=== PATIENT | female | born 1945 | race Caucasian/White ===

== ENCOUNTER 2019-03-04 12:38 | Emergency (ER) | payer MEDICARE, OTHER ==
--- OUTSIDE RECORDS SUMMARY | 2019-03-04 12:46 | XMS REPORT | Continuity of Care Document ---
:1945 External Reference #:[id number] Author Name Hoa Loo M.D. 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 Onset: region and thigh Social History Type Date Description Comments Sex Unknown Tobacco Use Start: Unknown Never Smoked Cigarettes Smoking Status Reviewed: 02/22/19 Never Smoked Cigarettes ETOH Use Denies alcohol use Tobacco Use Start: Unknown Patient has never smoked Exercise Type/Frequency Does not exercise Allergies, Adverse Reactions, Alerts Active Allergies Reaction Severity Comments Date NKDA 11/25/2015 Shrimp facial swelling 11/25/2015 Medications Active Medications SIG Qnty Indications Ordering Date Provider Cipro take one tab 6tabs Hoa Loo, 02/22/2019 250mg Tablets twice a day for M.D. three days Ibuprofen take 1 tablet 2 60tabs Hakeem Meraz, 12/18/2018 600mg Tablets times a day M.D. with food as needed for pain, avoid with other NSAIDs Plaquenil take 2 by mouth 180tabs Hakeem Meraz, 10/18/2018 200mg Tablets every day M.D. Leflunomide take 1 tablet 90tabs M05.79 Hakeem Meraz, 04/17/2018 20mg Tablets by mouth once M.D. daily Desloratadine 1 by mouth Unknown 5mg Tablets every day Vitamin C 1 by mouth Unknown 500mg Tablets every day Calcium 600 + Minerals 1 by mouth Unknown twice a day [id number] Tablets Magnesium 1 by mouth Unknown 250mg Tablets every day Vitamin B Complex 1 by mouth Unknown Tablets every day Vitamin D3 Super 1 by mouth Unknown Strength every day 2000Unit Tablets Multivitamin Adult 1 by mouth Unknown Tablets every day [place]-3 1 by mouth Unknown 1000mg Capsules twice a day Nitrofurantoin Take 1 Capsule Unknown Monohydrate/Macrocrysta By Mouth Twice ls Daily 100mg Capsules History Medications Plaquenil 1 by mouth every Hakeem Meraz M.D. 10/26/2018 - 200mg Tablets day for 1 week then 10/26/2018 2 by mouth daily ongoing Plaquenil 1 by mouth every Hakeem Meraz M.D. 10/26/2018 - 200mg Tablets day for 1 week then 10/26/2018 2 by mouth daily ongoing Medications Administered in Office Medication SIG Qnty Indications Ordering Provider Date Triamcinolone (Kenalog) Hakeem Meraz M.D. 07/18/2018 Injection Immunizations CPT Code Status Date Vaccine Lot # [id number] Given 12/18/2018 Fluad (65+) or older flu vacc [id number] Given 12/18/2017 Pneumococcal Conjugate Vaccine 13 Valent For [id number] Intramuscular Use 82094 Given Unknown Pneumococcal Conjugate Vaccine 13 Valent For Intramuscular Use Vital Signs Date Vital Result Comment 02/22/2019 8:51am Height 63 inches 5'3" Weight 148.00 lb Heart Rate 84 /min BP Systolic 131 mmHg BP Diastolic 74 mmHg Body Temperature 95.6 F Pain Level 8 BMI (Body Mass Index) 26.2 kg/m2 01/09/2019 10:24am Height 63 inches 5'3" Weight 155.00 lb Heart Rate 77 /min BP Systolic 126 mmHg BP Diastolic 84 mmHg Respiratory Rate 16 /min Body Temperature 98.0 F Pain Level 8 BMI (Body Mass Index) 27.5 kg/m2 Results Test Acquired Date Facility Test Result H/L Range Note CBC Auto 02/22/2019 [facility] White Blood 4.9 10^3/uL Normal 3.5-10.[address] [place] [address] [phone] Red Blood Count 4.56 10^6/uL Normal 3.70-4.87 Hemoglobin 13.3 g/dL Normal 12.0-16.0 Hematocrit 40 % Normal 35-47 Mean Corpuscular Volume 87 fL Normal 80-97 Mean Corpuscular Hemoglobin 29 pg Normal 27-31 Mean Corpuscular HGB Conc 34 g/dL Normal 31-36 Red Cell Distribution Width 14 % Normal 10-15 Platelet Count 276 10^3/uL Normal 150-450 Mean Platelet Volume 7.6 fL Normal 7.4-10.4 Abs Neutrophils 3.1 10^3/uL Normal 1.5-7.7 Abs Lymphocytes 1.1 10^3/uL Normal 1.0-4.8 Abs Monocytes 0.5 10^3/uL Normal 0-0.8 Abs Eosinophils 0.2 10^3/uL Normal 0-0.6 Abs Basophils 0.0 10^3/uL Normal 0-0.2 Abs Nucleated RBC 0.0 10^3/uL Granulocyte % 62.0 % Lymphocyte % 22.7 % Monocyte % 10.8 % Eosinophil % 4.0 % Basophil % 0.5 % Nucleated Red Blood Cells % 0.1 Inr/Protime 02/22/2019 [facility] Inr 1.02 Normal 0.82-1.09 [address] [place] [address] [phone] Laboratory test 02/22/2019 [facility] Partial 40.4 High 26.0- 38.0 finding [address] [facility] [place] [address] Time PTT [phone] Comp Metabolic 02/22/2019 [facility] Sodium 143 mmol/L Normal 135-145 Panel [address] [place] [address] [phone] Potassium 3.7 mmol/L Normal 3.5-5.0 Chloride 106 mmol/L Normal 101-111 Co2 Carbon Dioxide 30 mmol/L Normal 22-32 Anion Gap 7 mmol/L Normal 2-11 Glucose 79 mg/dL Normal 70-100 Blood Urea Nitrogen 16 mg/dL Normal 6-24 Creatinine 0.58 mg/dL Normal 0.51-0.95 BUN/Creatinine Ratio 27.6 High 8-20 Calcium 10.0 mg/dL Normal 8.6-10.3 Total Protein 6.8 g/dL Normal 6.4-8.9 Albumin 4.2 g/dL Normal 3.2-5.2 Globulin 2.6 g/dL Normal 2-4 Albumin/Globulin Ratio 1.6 Normal 1-3 Total Bilirubin 0.50 mg/dL Normal 0.2-1.0 Alkaline Phosphatase 80 U/L Normal 34-104 Alt 20 U/L Normal 7-52 Ast 22 U/L Normal 13-39 Egfr Non- 102.2 >60 Egfr 123.6 >60 2 Type & Screen 02/22/2019 [facility] Patient Blood Type O Positive [address] [place] [address] [phone] Antibody Screen NEGATIVE Comp Metabolic 12/14/2018 [facility] Sodium 143 mmol/L Normal 135-[address] [place] [address] [phone] Potassium 3.9 mmol/L Normal 3.5-5.0 Chloride 106 mmol/L Normal 101-111 Co2 Carbon Dioxide 29 mmol/L Normal 22-32 Anion Gap 8 mmol/L Normal 2-11 Glucose 84 mg/dL Normal 70-100 Blood Urea Nitrogen 14 mg/dL Normal 6-24 Creatinine 0.62 mg/dL Normal 0.51-0.95 BUN/Creatinine Ratio 22.6 High 8-20 Calcium 9.3 mg/dL Normal 8.6-10.3 Total Protein 6.5 g/dL Normal 6.4-8.9 Albumin 3.8 g/dL Normal 3.2-5.2 Globulin 2.7 g/dL Normal 2-4 Albumin/Globulin Ratio 1.4 Normal 1-3 Total Bilirubin 0.50 mg/dL Normal 0.2-1.0 Alkaline Phosphatase 71 U/L Normal 34-104 Alt 26 U/L Normal 7-52 Ast 23 U/L Normal 13-39 Egfr Non- 94.6 >60 Egfr 114.5 >60 3 CBC Auto 12/14/2018 [facility] White Blood 4.5 10^3/uL Normal 3.5-10.[address] [place] [address] [phone] Red Blood Count 4.38 10^6/uL Normal 3.70-4.87 Hemoglobin 13.1 g/dL Normal 12.0-16.0 Hematocrit 39 % Normal 35-47 Mean Corpuscular Volume 88 fL Normal 80-97 Mean Corpuscular Hemoglobin 30 pg Normal 27-31 Mean Corpuscular HGB Conc 34 g/dL Normal 31-36 Red Cell Distribution Width 13 % Normal 10-15 Platelet Count 276 10^3/uL Normal 150-450 Mean Platelet Volume 7.4 fL Normal 7.4-10.4 Abs Neutrophils 2.7 10^3/uL Normal 1.5-7.7 Abs Lymphocytes 0.9 10^3/uL Low 1.0-4.8 Abs Monocytes 0.6 10^3/uL Normal 0-0.8 Abs Eosinophils 0.3 10^3/uL Normal 0-0.6 Abs Basophils 0.0 10^3/uL Normal 0-0.2 Abs Nucleated RBC 0.0 10^3/uL Granulocyte % 60.0 % Lymphocyte % 20.4 % Monocyte % 12.1 % Eosinophil % 7.2 % Basophil % 0.3 % Nucleated Red Blood Cells % 0.1 Laboratory test 12/14/2018 [facility] Erythrocyte Sed 33 mm/Hr High 0-29 [address] [place] [address] [phone] C Reactive Protein 8.53 mg/L High <8.01 5 Laboratory test 12/14/2018 [facility] C Reactive 8.53 mg/L High <8.01 [address] [place] [address] [phone] Comp Metabolic 12/14/2018 [facility] Sodium 143 Normal 135- [address] mmol/[place] [address] [phone] Potassium 3.9 mmol/L Normal 3.5-5.0 Chloride 106 mmol/L Normal 101-111 Co2 Carbon Dioxide 29 mmol/L Normal 22-32 Anion Gap 8 mmol/L Normal 2-11 Glucose 84 mg/dL Normal 70-100 Blood Urea Nitrogen 14 mg/dL Normal 6-24 Creatinine 0.62 mg/dL Normal 0.51-0.95 BUN/Creatinine Ratio 22.6 High 8-20 Calcium 9.3 mg/dL Normal 8.6-10.3 Total Protein 6.5 g/dL Normal 6.4-8.9 Albumin 3.8 g/dL Normal 3.2-5.2 Globulin 2.7 g/dL Normal 2-4 Albumin/Globulin Ratio 1.4 Normal 1-3 Total Bilirubin 0.50 mg/dL Normal 0.2-1.0 Alkaline Phosphatase 71 U/L Normal 34-104 Alt 26 U/L Normal 7-52 Ast 23 U/L Normal 13-39 Egfr Non- 94.6 >60 Egfr 114.5 >60 7 CBC Auto 12/14/2018 [facility] White Blood 4.5 10^3/uL Normal 3.5-10.[address] [place] [address] [phone] Red Blood Count 4.38 10^6/uL Normal 3.70-4.87 Hemoglobin 13.1 g/dL Normal 12.0-16.0 Hematocrit 39 % Normal 35-47 Mean Corpuscular Volume 88 fL Normal 80-97 Mean Corpuscular Hemoglobin 30 pg Normal 27-31 Mean Corpuscular HGB Conc 34 g/dL Normal 31-36 Red Cell Distribution Width 13 % Normal 10-15 Platelet Count 276 10^3/uL Normal 150-450 Mean Platelet Volume 7.4 fL Normal 7.4-10.4 Abs Neutrophils 2.7 10^3/uL Normal 1.5-7.7 Abs Lymphocytes 0.9 10^3/uL Low 1.0-4.8 Abs Monocytes 0.6 10^3/uL Normal 0-0.8 Abs Eosinophils 0.3 10^3/uL Normal 0-0.6 Abs Basophils 0.0 10^3/uL Normal 0-0.2 Abs Nucleated RBC 0.0 10^3/uL Granulocyte % 60.0 % Lymphocyte % 20.4 % Monocyte % 12.1 % Eosinophil % 7.2 % Basophil % 0.3 % Nucleated Red Blood Cells % 0.1 Laboratory test 12/14/2018 [facility] Erythrocyte Sed 33 mm/Hr High 0-29 [address] [place] [address] [phone] Laboratory test 10/16/2018 [facility] Erythrocyte Sed 45 mm/Hr High 0-29 [address] [place] [address] [phone] C Reactive Protein 15.08 mg/L High <8.01 10 CBC Auto 10/16/2018 [facility] White Blood 6.7 10^3/uL Normal 3.5-10.[address] [place] [address] [phone] Red Blood Count 4.34 10^6/uL Normal 3.70-4.87 Hemoglobin 13.0 g/dL Normal 12.0-16.0 Hematocrit 38 % Normal 35-47 Mean Corpuscular Volume 88 fL Normal 80-97 Mean Corpuscular Hemoglobin 30 pg Normal 27-31 Mean Corpuscular HGB Conc 34 g/dL Normal 31-36 Red Cell Distribution Width 14 % Normal 10-15 Platelet Count 335 10^3/uL Normal 150-450 Mean Platelet Volume 7.2 fL Low 7.4-10.4 Abs Neutrophils 4.2 10^3/uL Normal 1.5-7.7 Abs Lymphocytes 1.2 10^3/uL Normal 1.0-4.8 Abs Monocytes 0.7 10^3/uL Normal 0-0.8 Abs Eosinophils 0.6 10^3/uL Normal 0-0.6 Abs Basophils 0.1 10^3/uL Normal 0-0.2 Abs Nucleated RBC 0.0 10^3/uL Granulocyte % 61.9 % Lymphocyte % 18.4 % Monocyte % 10.5 % Eosinophil % 8.4 % Basophil % 0.8 % Nucleated Red Blood Cells % 0.0 Comp Metabolic 10/16/2018 [facility] Sodium 141 mmol/L Normal 135-[address] [place] [address] [phone] Potassium 3.6 mmol/L Normal 3.5-5.0 Chloride 106 mmol/L Normal 101-111 Co2 Carbon Dioxide 32 mmol/L Normal 22-32 Anion Gap 3 mmol/L Normal 2-11 Glucose 87 mg/dL Normal 70-100 Blood Urea Nitrogen 11 mg/dL Normal 6-24 Creatinine 0.55 mg/dL Normal 0.51-0.95 BUN/Creatinine Ratio 20.0 Normal 8-20 Calcium 9.2 mg/dL Normal 8.6-10.3 Total Protein 6.7 g/dL Normal 6.4-8.9 Albumin 4.0 g/dL Normal 3.2-5.2 Globulin 2.7 g/dL Normal 2-4 Albumin/Globulin Ratio 1.5 Normal 1-3 Total Bilirubin 0.50 mg/dL Normal 0.2-1.0 Alkaline Phosphatase 87 U/L Normal 34-104 Alt 17 U/L Normal 7-52 Ast 18 U/L Normal 13-39 Egfr Non- 109.0 >60 Egfr 131.8 >60 11 1 Standard intensity warfarin therapeutic range: 2.0-3.0 High intensity warfarin therapeutic range: 2.5-3.5 2 Because ethnic data is not always readily available, this report includes an eGFR for both -Americans and non- Americans. The National Kidney Disease Education Program (NKDEP) does not endorse the use of the MDRD equation for patients that are not between the ages of 18 and 70, are , have extremes of body size, muscle mass, or nutritional status, or are non- or non-. According to the National Kidney Foundation, irrespective of diagnosis, the stage of the disease is based on the level of kidney function: Stage Description GFR(mL/min/1.73 m(2)) 1 Kidney damage with normal or decreased GFR 90 2 Kidney damage with mild decrease in GFR 60-89 3 Moderate decrease in GFR 30-59 4 Severe decrease in GFR 15-29 5 Kidney failure <15 (or dialysis) 3 Because ethnic data is not always readily available, this report includes an eGFR for both -Americans and non- Americans. The National Kidney Disease Education Program (NKDEP) does not endorse the use of the MDRD equation for patients that are not between the ages of 18 and 70, are , have extremes of body size, muscle mass, or nutritional status, or are non- or non-. According to the National Kidney Foundation, irrespective of diagnosis, the stage of the disease is based on the level of kidney function: Stage Description GFR(mL/min/1.73 m(2)) 1 Kidney damage with normal or decreased GFR 90 2 Kidney damage with mild decrease in GFR 60-89 3 Moderate decrease in GFR 30-59 4 Severe decrease in GFR 15-29 5 Kidney failure <15 (or dialysis) 4 Please check labs 2 days before follow up 5 Please check labs 2 days before follow up 6 Please check labs 2 days before follow up 7 Because ethnic data is not always readily available, this report includes an eGFR for both -Americans and non- Americans. The National Kidney Disease Education Program (NKDEP) does not endorse the use of the MDRD equation for patients that are not between the ages of 18 and 70, are , have extremes of body size, muscle mass, or nutritional status, or are non- or non-. According to the National Kidney Foundation, irrespective of diagnosis, the stage of the disease is based on the level of kidney function: Stage Description GFR(mL/min/1.73 m(2)) 1 Kidney damage with normal or decreased GFR 90 2 Kidney damage with mild decrease in GFR 60-89 3 Moderate decrease in GFR 30-59 4 Severe decrease in GFR 15-29 5 Kidney failure <15 (or dialysis) 8 Please check labs 2 days before follow up 9 Please check labs 2 days before follow up and xrays today 10 Please check labs 2 days before follow up and xrays today 11 Because ethnic data is not always readily available, this report includes an eGFR for both -Americans and non- Americans. The National Kidney Disease Education Program (NKDEP) does not endorse the use of the MDRD equation for patients that are not between the ages of 18 and 70, are , have extremes of body size, muscle mass, or nutritional status, or are non- or non-. According to the National Kidney Foundation, irrespective of diagnosis, the stage of the disease is based on the level of kidney function: Stage Description GFR(mL/min/1.73 m(2)) 1 Kidney damage with normal or decreased GFR 90 2 Kidney damage with mild decrease in GFR 60-89 3 Moderate decrease in GFR 30-59 4 Severe decrease in GFR 15-29 5 Kidney failure <15 (or dialysis) Procedures Date Code Description Status 11/07/2018 [id number] Bone Mineral Density Test Completed Medical Devices Description No Information Available Encounters Type Date Location Provider Dx Diagnosis Office Visit 01/09/2019 [facility] Hoa Loo, M06.09 Rheumatoid 10:00a at [facility] arthritis w/o rheumatoid factor, multiple sites M25.552 Pain in left hip M16.12 Unilateral primary osteoarthritis, left hip Office Visit 12/18/2018 8:20a [facility]umat[facility] Hakeem M06.09 [facility] M.D. arthritis w/o rheumatoid factor, multiple sites Z79.899 Other snf (current) drug therapy M25.552 Pain in left hip R79.82 Elevated C-reactive protein (CRP) Z23 Encounter for immunization Office Visit 10/18/2018 8:00a Rheumatology Hakeem Meraz, M05.79 [facility] w [facility] site w/o org/sys involv Z79.899 Other snf (current) drug therapy M25.562 Pain in left knee M25.511 Pain in right shoulder M25.552 Pain in left hip Assessments Date Code Description Provider 02/22/2019 M25.552 Pain in left hip Hoa Loo M.D. 02/22/2019 M16.12 Unilateral primary osteoarthritis, left hip Hoa Loo M.D. 01/09/2019 M06.09 Rheumatoid arthritis without rheumatoid Rahul Fleming, multiple sites 01/09/2019 M25.552 Pain in left hip Hoa Loo M.D. 01/09/2019 M16.12 Unilateral primary osteoarthritis, left hip Hao Loo M.D. 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 12/18/2018 M25.552 Pain in left hip Hakeem Meraz M.D. 12/18/2018 R79.82 Elevated C-reactive protein (CRP) Hakeem Meraz M.D. 12/18/2018 Z23 Encounter for immunization Hakeem Meraz M.D. 10/18/2018 M05.79 Rheumatoid arthritis with rheumatoid factor of Hakeem Meraz M.D. 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 10/18/2018 M25.562 Pain in left knee Hakeem Meraz M.D. 10/18/2018 M25.511 Pain in right shoulder Hakeem Meraz M.D. 10/18/2018 M25.552 Pain in left hip Hakeem Meraz M.D. Plan of Treatment Future Appointment(s):03/20/2019 9:45 am - Hoa Loo M.D. at [facility] at Pufxpj1203/05/2019 12:30 pm - Horacio Corbett PA-C at [facility] at Fmhcat2003/05/2019 12:30 pm - ATIYA Escobar at [facility] at Dqyoky7803/05/2019 12:30 pm - Hoa Loo M.D. at [facility] at Crhoeq7603/20/2019 8:00 am - Hakeem Meraz M.D. at [facility]02/22/2019 - Hoa Loo M.D.M25.552 Pain in left hipFollow up: Follow up: 2 weeks after hrhzbjvX80.12 Unilateral primary osteoarthritis, left hip Functional Status Description No Information Available Mental Status Description No Information Available Referrals Refer to Reason for Referral Status Appt Date Mitchell Peña MD Please monitor for Plaquenil toxicity Sent [address] [place] [address] [phone] Hoa Loo M.D. Please evaluate and treat patient with severe Sent advanced left hip osteoarthritis [address] [place] [address] [phone]
--- OUTSIDE RECORDS SUMMARY | 2019-03-04 12:47 | XMS REPORT | Continuity of Care Document ---
:1945 External Reference #:[id number] Author Name Hoa Loo M.D. (transmitted by agent of provider Kimberly Scott) Address [address] [place] [address] Problems Active Problems Provider Date Localized, primary osteoarthritis of the pelvic Hoa Loo M.D. Onset: region and thigh Social History Type Date Description Comments Sex Unknown Tobacco Use Start: Unknown Never Smoked Cigarettes Smoking Status Reviewed: 01/09/19 Never Smoked Cigarettes ETOH Use Denies alcohol use Tobacco Use Start: Unknown Patient has never smoked Exercise Type/Frequency Does not exercise Allergies, Adverse Reactions, Alerts Active Allergies Reaction Severity Comments Date NKDA 11/25/2015 Shrimp facial swelling 11/25/2015 Medications Active Medications SIG Qnty Indications Ordering Provider Date Ibuprofen take 1 tablet 2 60tabs Hakeem [...] 1 by mouth Unknown twice a day [id number] Tablets Magnesium 1 by mouth Unknown 250mg Tablets every day Vitamin B Complex 1 by mouth Unknown every day Tablets Vitamin D3 Super 1 by mouth Unknown Strength every day 2000Unit Tablets Multivitamin Adult 1 by mouth Unknown every day Tablets [place]-3 1 by mouth Unknown 1000mg Capsules twice a day History Medications Plaquenil 1 by mouth every [...] CPT Code Status Date Vaccine Lot # [id number] Given 12/18/2018 Fluzone High Dose [id number] 93611 Given 12/18/2017 Pneumococcal Conjugate Vaccine 13 Valent For [id number] Intramuscular Use 24771 Given Unknown Pneumococcal Conjugate Vaccine 13 Valent For Intramuscular Use Vital Signs Date Vital Result Comment 01/09/2019 10:24am Height 63 inches 5'3" Weight 155.00 lb Heart Rate 77 /min BP Systolic 126 mmHg BP Diastolic 84 mmHg Respiratory Rate 16 /min Body Temperature 98.0 F Pain Level 8 BMI (Body Mass Index) 27.5 kg/m2 12/18/2018 8:17am Height 63 inches 5'3" Weight 151.00 lb Heart Rate 83 /min BP Systolic Sitting 122 mmHg BP Diastolic Sitting 72 mmHg Pain Level 2 O2 % BldC Oximetry 97 % BMI (Body Mass Index) 26.7 kg/m2 Results Test Acquired Facility Test Result H/L Range Note Date Laboratory test 12/14/2018 [facility] Erythrocyte Sed 33 mm/Hr High 0-29 [address] [place] [address] [phone] CBC Auto Diff 12/14/2018 [facility] White Blood 4.5 Normal 3.5 -10.[address] Count 10^3/uL [place], [place] [id number] [phone] Red Blood Count 4.38 10^6/uL Normal 3.70-4.87 [...] % Nucleated Red Blood Cells % 0.1 Comp Metabolic 12/14/2018 [facility] Sodium 143 mmol/L Normal 135-[address] [place] [address] [phone] Potassium 3.9 mmol/L Normal 3.5-5.0 Chloride 106 [...] Egfr Non- 94.6 >60 Egfr 114.5 >60 2 Laboratory test 12/14/2018 [facility] C Reactive 8.53 mg/L High <8.01 [address] [place] [address] [phone] Laboratory test 12/14/2018 [facility] Erythrocyte Sed 33 mm/Hr High 0-[address] [place] [address] [phone] C Reactive Protein 8.53 mg/L High <8.01 5 CBC Auto 12/14/2018 [facility] White Blood 4.5 10^3/uL Normal 3.5-10.[address] [place] [address] [phone] Red Blood Count 4.38 10^6/uL Normal 3.70-4.87 [...] % Nucleated Red Blood Cells % 0.1 Comp Metabolic 12/14/2018 [facility] Sodium 143 mmol/L Normal 135-[address] [place] [address] [phone] Potassium 3.9 mmol/L Normal 3.5-5.0 Chloride 106 [...] Egfr Non- 94.6 >60 Egfr 114.5 >60 6 Laboratory test 10/16/2018 [facility] Erythrocyte Sed 45 mm/Hr High 0-29 [address] [place] [place] [address] [phone] C Reactive Protein 15.08 mg/L High <8.01 8 CBC Auto 10/16/2018 [facility] White Blood 6.7 10^3/uL Normal 3.5-10.[address] [place] [address] [phone] Red Blood Count 4.34 10^6/uL Normal 3.70-4.87 [...] Blood Cells % 0.0 Comp Metabolic 10/16/2018 [facility] Sodium 141 mmol/L Normal 135-[address] [place] [address] [phone] Potassium 3.6 mmol/L Normal 3.5-5.0 Chloride 106 [...] Egfr Non- 109.0 >60 Egfr 131.8 >60 9 Laboratory test 07/12/2018 [facility] Erythrocyte Sed 45 mm/Hr High 0-29 [address] [place] [address] [phone] C Reactive Protein 15.23 mg/L High <8.01 11 CBC Auto 07/12/2018 [facility] White Blood 6.8 10^3/uL Normal 3.5-10.[address] [place] [address] [phone] Red Blood Count 4.39 10^6/uL Normal 3.70-4.87 Hemoglobin 12.8 g/dL Normal 12.0-16.0 Hematocrit 39 % Normal 35-47 Mean Corpuscular Volume 88 fL Normal 80-97 Mean Corpuscular Hemoglobin 29 pg Normal 27-31 Mean Corpuscular HGB Conc 33 g/dL Normal 31-36 Red Cell Distribution Width 13 % Normal 10.5-15 Platelet Count 312 10^3/uL Normal 150-450 Mean Platelet Volume 7.6 fL Normal 7.4-10.4 Abs Neutrophils 3.9 10^3/uL Normal 1.5-7.7 Abs Lymphocytes 1.3 10^3/uL Normal 1.0-4.8 Abs Monocytes 0.7 10^3/uL Normal 0-0.8 Abs Eosinophils 0.9 10^3/uL High 0-0.6 Abs Basophils 0.0 10^3/uL Normal 0-0.2 Abs Nucleated RBC 0.0 10^3/uL Granulocyte % 57.1 % Lymphocyte % 19.6 % Monocyte % 10.0 % Eosinophil % 12.6 % Basophil % 0.7 % Nucleated Red Blood Cells % 0.0 Comp Metabolic 07/12/2018 [facility] Sodium 142 mmol/L Normal 135-[address] [place] [address] [phone] Potassium 4.0 mmol/L Normal 3.5-5.0 Chloride 105 mmol/L Normal 101-111 Co2 Carbon Dioxide 32 mmol/L Normal 22-32 Anion Gap 5 mmol/L Normal 2-11 Glucose 91 mg/dL Normal 70-100 Blood Urea Nitrogen 13 mg/dL Normal 6-24 Creatinine 0.59 mg/dL Normal 0.51-0.95 BUN/Creatinine Ratio 22.0 High 8-20 Calcium 9.6 mg/dL Normal 8.6-10.3 Total Protein 6.9 g/dL Normal 6.4-8.9 Albumin 3.9 g/dL Normal 3.2-5.2 Globulin 3.0 g/dL Normal 2-4 Albumin/Globulin Ratio 1.3 Normal 1-3 Total Bilirubin 0.50 mg/dL Normal 0.2-1.0 Alkaline Phosphatase 70 U/L Normal 34-104 Alt 19 U/L Normal 7-52 Ast 20 U/L Normal 13-39 Egfr Non- 100.5 >60 Egfr 121.6 >60 12 1 Please check labs 2 days before follow up 2 Because ethnic data is not always [...] 5 Kidney failure <15 (or dialysis) 3 Please check labs 2 days before follow up 4 Please check labs 2 days before follow up 5 Please check labs 2 days before follow up 6 Because ethnic data is not always readily [...] 15-29 5 Kidney failure <15 (or dialysis) 7 Please check labs 2 days before follow up and xrays today 8 Please check labs 2 days before follow up and xrays today 9 Because ethnic data is not always readily [...] 15-29 5 Kidney failure <15 (or dialysis) 10 Please check labs 2 days before follow up 11 Please check labs 2 days before follow up 12 Because ethnic data is not always readily [...] dialysis) Procedures Date Code Description Status 11/07/2018 074576871 Bone Mineral Density Test Completed 07/18/2018 89161 Inject/Drain Joint/Bursa Major W/O US Completed Medical Devices Description No Information Available Encounters Type Date Location Provider Dx Diagnosis Office Visit 12/18/2018 Rheumatology Jamison Cooney6.09 Rheumatoid 8:20a [facility] Rahul arthritis w/o rheumatoid factor, multiple sites Z79.899 Other assisted (current) drug therapy M25.552 Pain in left hip R79.82 Elevated C-reactive protein (CRP) Z23 Encounter for immunization Office Visit 10/18/2018 8:00a Rheumatology Jamison Cooney5.79 Rheu arthritis [facility] Rahul w rheu factor [facility] [place] w/o org/sys involv Z79.899 Other machine long goods helper (current) drug therapy M25.562 Pain in left knee M25.511 Pain in right shoulder M25.552 Pain in left hip Office Visit 07/18/2018 8:40a Rheumatology Jamison Cooney5.79 Rheu arthritis [facility] Rahul w rheu factor mult site w/o org/sys involv Z79.899 Other assisted (current) drug therapy M70.62 Trochanteric bursitis, left hip M25.562 Pain in left knee M25.552 Pain in left hip Assessments Date Code Description Provider 01/09/2019 M06.09 Rheumatoid arthritis without rheumatoid Hoa Loo M.D. factor, multiple sites 01/09/2019 M25.552 Pain in left hip Hoa Loo M.D. 01/09/2019 M16.12 Unilateral primary osteoarthritis, left hip Hoa Loo M.D. 12/18/2018 M06.09 Rheumatoid arthritis without rheumatoid Hakeem Meraz M.D. factor, multiple sites 12/18/2018 Z79.899 Other assisted (current) drug therapy Hakeem Meraz M.D. 12/18/2018 M25.552 Pain in left hip Hakeem Meraz M.D. 12/18/2018 R79.82 Elevated C-reactive protein (CRP) Hakeem Meraz M.D. 12/18/2018 Z23 Encounter for immunization Hakeem Meraz M.D. 10/18/2018 M05.79 Rheumatoid arthritis with rheumatoid factor of Hakeem Meraz M.D. multiple site 10/18/2018 Z79.899 Other machine long goods helper (current) drug therapy Hakeem Meraz M.D. 10/18/2018 M25.562 Pain in left knee Hakeem Meraz M.D. 10/18/2018 M25.511 Pain in right shoulder Hakeem Meraz M.D. 10/18/2018 M25.552 Pain in left hip Hakeem Meraz M.D. 07/18/2018 M05.79 Rheumatoid arthritis with rheumatoid factor of Hakeem Meraz M.D. multiple site 07/18/2018 Z79.899 Other machine long goods helper (current) drug therapy Hakeem Meraz M.D. 07/18/2018 M70.62 Trochanteric bursitis, left hip Hakeem Meraz M.D. 07/18/2018 M25.562 Pain in left knee Hakeem Meraz M.D. 07/18/2018 M25.552 Pain in left hip Hakeem Meraz M.D. Plan of Treatment Future Appointment(s):03/20/2019 8:00 am - Hakeem Meraz M.D. at [facility]01/09/2019 - Hoa Loo M.D.M06.09 Rheumatoid arthritis without rheumatoid factor, multiple sitesFollow up:Follow up: 7-10 days before lmrzcjwA63.552 Pain in left hipM16.12 Unilateral primary osteoarthritis, left hip Functional Status Description No Information Available Mental Status Description No Information Available Referrals Refer to Dr Reason for Referral Status Appt Date Mitchell Peña MD Please monitor for Plaquenil toxicity Sent [address] [place] [address] [phone] Hoa Loo M.D. Please evaluate and treat patient with severe Sent advanced left hip osteoarthritis [address] [place] [address] [phone]
--- OUTSIDE RECORDS SUMMARY | 2019-03-04 12:47 | XMS REPORT | Continuity of Care Document ---
:1945 External Reference #:[id number] Author Name Hoa Loo M.D. (transmitted by agent of provider Priti Post) Address [address] [place] [address] Care Team Providers Name Role Phone Albert Dos Santos MD - Family Care Team Information [facility] [phone] Medicine Problems Active Problems Provider Date Localized, [...] 1 by mouth Unknown twice a day [id number] Tablets Magnesium 1 by mouth Unknown 250mg Tablets every day Vitamin B Complex 1 by mouth Unknown Tablets every day Vitamin D3 Super 1 by mouth Unknown Strength every day 2000Unit Tablets Multivitamin Adult 1 by mouth Unknown Tablets every day [place]-3 1 by mouth Unknown 1000mg Capsules twice [...] CPT Code Status Date Vaccine Lot # 55574 Given 12/18/2018 Fluad (65+) or older flu vacc [id number] 15519 Given 12/18/2017 Pneumococcal Conjugate Vaccine 13 Valent For [id number] Intramuscular Use 29646 Given Unknown Pneumococcal Conjugate Vaccine 13 Valent [...] Mass Index) 27.5 kg/m2 Results Test Acquired Facility Test Result H/L Range Note Date Laboratory test 12/14/2018 [facility] Erythrocyte Sed 33 mm/Hr High 0-29 [address] [place] [address] [phone] CBC Auto Diff 12/14/2018 [facility] White Blood 4.5 Normal 3.5 -10.[address] Count 10^3/[place] [address] [phone] Red Blood Count 4.38 10^6/uL Normal 3.70-4.87 [...] Blood Cells % 0.1 Comp Metabolic 12/14/2018 [facility] Sodium 143 mmol/L Normal 135-[address] [place] [address] [phone] Potassium 3.9 mmol/L Normal 3.5-5.0 Chloride 106 [...] Egfr 114.5 >60 2 Laboratory test 12/14/2018 [facility] C Reactive 8.53 mg/L High <8.01 [address] [place] [address] [phone] Laboratory test 12/14/2018 [facility] Erythrocyte Sed 33 mm/Hr High 0-29 [address] [place] [address] [phone] C Reactive Protein 8.53 mg/L High <8.01 5 CBC Auto 12/14/2018 [facility] White Blood 4.5 10^3/uL Normal 3.5-10.[address] [place] [address] [phone] Red Blood Count 4.38 10^6/uL Normal 3.70-4.87 [...] Blood Cells % 0.1 Comp Metabolic 12/14/2018 [facility] Sodium 143 mmol/L Normal 135-[address] [place] [address] [phone] Potassium 3.9 mmol/L Normal 3.5-5.0 Chloride 106 [...] Egfr 114.5 >60 6 Laboratory test 10/16/2018 [facility] Erythrocyte Sed 45 mm/Hr High 0-29 [address] [place] [address] [phone] C Reactive Protein 15.08 mg/L High <8.01 8 CBC Auto 10/16/2018 [facility] White Blood 6.7 10^3/uL Normal 3.5-10.[address] [place] [address] [phone] Red Blood Count 4.34 10^6/uL Normal 3.70-4.87 [...] Blood Cells % 0.0 Comp Metabolic 10/16/2018 [facility] Sodium 141 mmol/L Normal 135-[address] [place] [address] [phone] Potassium 3.6 mmol/L Normal 3.5-5.0 Chloride 106 [...] Non- 109.0 >60 Egfr 131.8 >60 9 1 Please check labs 2 days before [...] dialysis) Procedures Date Code Description Status 11/07/2018 [id number] Bone Mineral Density Test Completed Medical Devices Description No Information Available Encounters Type Date Location Provider Dx Diagnosis Office Visit 01/09/2019 [facility] Hoa Loo, M06.09 Rheumatoid 10:00a at [facility] arthritis w/o rheumatoid factor, multiple sites M25.552 Pain in left hip M16.12 Unilateral primary osteoarthritis, left hip Office Visit 12/18/2018 8:20a Rheumatology Hakeem M06.09 [facility] M.D. arthritis w/o rheumatoid factor, multiple sites Z79.899 Other fci (current) drug therapy M25.552 Pain in left hip R79.82 Elevated C-reactive protein (CRP) Z23 Encounter for immunization Office Visit 10/18/2018 8:00a Rheumatology Jamison Cooney5.79 Rheu arthritis [facility] w rheu factor mult site w/o org/sys involv Z79.899 Other fci (current) drug therapy M25.562 Pain in left [...] Rahul Cooney, multiple sites 12/18/2018 Z79.899 Other fci (current) drug therapy Hakeem Meraz M.D. 12/18/2018 M25.552 Pain in left hip Hakeem Meraz M.D. 12/18/2018 R79.82 Elevated C-reactive protein (CRP) Hakeem Meraz M.D. 12/18/2018 Z23 Encounter for immunization Hakeem Meraz M.D. 10/18/2018 M05.79 Rheumatoid arthritis with rheumatoid factor of Hakeem Meraz M.D. multiple site 10/18/2018 Z79.899 Other fci (current) drug therapy Hakeem Meraz M.D. 10/18/2018 M25.562 Pain in left knee Hakeem Meraz M.D. 10/18/2018 M25.511 Pain in right shoulder Hakeem Meraz M.D. 10/18/2018 M25.552 Pain in left hip Hakeem Meraz M.D. Plan of Treatment Future Appointment(s):03/20/2019 9:45 am - [facility]:30 pm - [facility] 12:30 pm - ATIYA Escobar at [facility]03/05/2019 12:30 pm - Hoa Loo M.D. at [facility] at [facility]/20/2019 8:00 am - Hakeem Meraz M.D. at [facility]02/22/2019 - Hoa Loo M.D.M25.552 Pain in left hipFollow up: Follow up: 2 weeks after heftnewV81.12 Unilateral primary osteoarthritis, left hip Functional Status Description No Information Available Mental Status Description No Information Available Referrals Refer to Dr Reason for Referral Status Appt Date Mitchell Peña MD Please monitor for Plaquenil toxicity Sent [address] [place] [address] [phone] Hoa Loo M.D. Please evaluate and treat patient with severe Sent advanced left hip osteoarthritis [address] [place] [address] [phone]
[2019-03-04 12:57] VITALS: BP 143/85
--- NOTE | 2019-03-04 13:11 | UC ---
Complaint Female HPI - HPI Summary HPI Summary: Ms. Watson has been trying to get hip surgery her urine has tested positive for enterococcus in spite of being treated. Dr. Millan consult to Dr. Antunez who recommended a straight catheter. She comes in today to have a straight catheter urine sent to the lab. She has no complaints. - History Of Current Complaint Chief Complaint: UCGU Stated Complaint: URINARY ISSUE Time Seen by Provider: 03/04/19 12:43 Hx Obtained From: Patient Severity Initially: Mild Severity Currently: None Pain Intensity: 2 Character: Not Applicable Aggravating Factor(s): Nothing Alleviating Factor(s): Nothing Associated Signs And Symptoms: Positive: Negative - Allergies/Home Medications Allergies/Adverse Reactions: Allergies Allergy/AdvReac Type Severity Reaction Status Date / Time SHRIMP Allergy Severe violently Uncoded 03/04/19 12:57 vomiting PMH/Surg Hx/FS Hx/Imm Hx Previously Healthy: Yes - Surgical History Surgical History: Yes Surgery Procedure, Year, and Place: RT lumpectomy, breast. cholecystectomy. appendectomy. tonsillectomy. RT WRIST CARPAL TUNNEL - Social History Alcohol Use: None Substance Use Type: None Smoking Status (MU): Never Smoked Tobacco Review of Systems All Other Systems Reviewed And Are Negative: Yes Physical Exam - Summary Physical Exam Summary: She is nontoxic in appearance with stable vital signs Triage Information Reviewed: Yes Appearance: Well-Appearing Vital Signs: Initial Vital Signs Temp 98.9 F 03/04/19 12:54 Pulse 80 03/04/19 12:54 Resp 18 03/04/19 12:54 BP 143/85 03/04/19 12:54 Pulse Ox 99 03/04/19 12:54 Vital Signs Reviewed: Yes ENT Exam: Normal Respiratory Exam: Normal Cardiovascular Exam: Normal Abdominal Exam: Normal Neurological Exam: Normal Complaint Female Dx - Course Course Of Treatment: Her initial UA is negative here in the urine has been sent to the lab for culture. She underwent straight catheterization by the nursing staff. - Differential Dx/Diagnosis Provider Diagnosis: Urinary catheter insertion/adjustment/removal Discharge ED - Sign-Out/Discharge Documenting (check all that apply): Patient Departure All imaging exams completed and their final reports reviewed: No Studies - Discharge Plan Condition: Stable Disposition: HOME Referrals: Albert Dos Santos MD [Primary Care Provider] - Additional Instructions: Culture results will be available in 2 days - Billing Disposition and Condition Condition: STABLE Disposition: Home
--- NOTE | 2019-03-05 15:25 | UC ---
- Progress Note Progress Note: final urine - no growth, no change bobby Course/Dx - Diagnoses Provider Diagnoses: Urinary catheter insertion/adjustment/removal Discharge ED - Sign-Out/Discharge Documenting (check all that apply): Post-Discharge Follow Up All imaging exams completed and their final reports reviewed: No Studies - Discharge Plan Condition: Stable Disposition: HOME Referrals: Albert Dos Santos MD [Primary Care Provider] - Additional Instructions: Culture results will be available in 2 days - Billing Disposition and Condition Condition: STABLE Disposition: Home
== END 2019-03-04 13:19 | disposition home or self-care (01) ==
LOC: UCEAST 12:38
DX: Z46.6 Encounter for fitting and adjustment of urinary device (principal); R82.71 Bacteriuria; B95.2 Enterococcus as the cause of diseases classified elsewhere; Z91.013 Allergy to seafood
CPT/HCPCS: 81003; 87086; 99211; G0463

== ENCOUNTER 2019-03-19 06:27 | Observation (INO) | payer MEDICARE, OTHER ==
--- NOTE | 2019-02-26 10:01 | HP ---
AMENDED REPORT NOW INCLUDES DESIGNATED COSIGNER HISTORY AND PHYSICAL: DATE OF ADMISSION/SURGERY: 03/05/19 DATE OF OFFICE VISIT: 02/22/19 SURGEON: Hoa Loo MD * (DICTATED BY ATIYA FLOYD) PROCEDURE: Left total hip arthroplasty. CHIEF COMPLAINT: Left hip pain. HISTORY OF PRESENT ILLNESS: Ms. Watson is a 73-year-old female with end-stage osteoarthritis of the left hip. She has failed conservative treatment and elected to proceed with a left total hip arthroplasty. PAST MEDICAL HISTORY: RA and breast cancer. PAST SURGICAL HISTORY: Tonsillectomy, adenoidectomy, tubal ligation, cholecystectomy, appendectomy, lumpectomy, and carpal tunnel release. CURRENT MEDICATIONS: 1. Plaquenil 200 mg 2 daily. 2. Leflunomide 20 mg daily. 3. Desloratadine 5 mg a day. 4. Vitamin C. 5. Calcium. 6. Magnesium. 7. Vitamin B. 8. Vitamin D3. 9. Multivitamin. 10. [place]-3. ALLERGIES: No known drug allergies. FAMILY HISTORY: Coronary artery disease, cancer, and RA. SOCIAL HISTORY: She is a 73-year-old female, lives alone. She does not smoke or use alcohol. REVIEW OF SYSTEMS: A complete 14-point review of systems was reviewed with the patient. It was all negative or noncontributory. PHYSICAL EXAMINATION GENERAL: She is well developed, well nourished, in no acute distress. VITAL SIGNS: She stands 63 inches tall, weighs 155 pounds. Her blood pressure is 126/84, her heart rate is 77. HEENT: Normocephalic, atraumatic. NECK: Supple. No palpable lymph nodes. PULMONARY: The lungs are clear to auscultation bilaterally. CARDIO: Regular rate and rhythm. Strong S1, S2. ABDOMEN: Soft, nontender, nondistended. NEUROLOGICAL: She is alert and oriented x3. MUSCULOSKELETAL: Left lower extremity: The skin is intact. There are no open wounds or abrasions. She has a 100 degrees of hip flexion, 0 degrees of internal rotation, 20 degrees of external rotation, reproducing severe groin pain. She is able to dorsiflex and plantarflex. She has a 2+ dorsalis pedis pulse and intact sensation. ASSESSMENT AND PLAN: Ms. Watson is a 73-year-old female with end-stage osteoarthritis of the left hip. She has failed conservative treatment and elected to proceed with a left total hip arthroplasty. The surgery is scheduled for 03/05/[address] Loo discussed the risks and benefits of the surgery at today's visit and all of her questions were answered. She will follow up with Dr. Loo 2 weeks after the surgery. ATIYA FLOYD [id number]/[facility] #: [id number] MTDDima
[~2019-03-19 06:27] MED LIST: Buffered Lidocaine 1% SYRIN* 1 ML/SYRINGE INTRADERM ONE; Lactated Ringers 1000 ML Bag* 1,000 ML IV SCH; Tranexamic Acid 1,000 MG in NS 0.9% 50 ML IV ONE
[2019-03-19] MEDS ORDERED: ROPIVACAINE 5 MG/ML 30 ML BTL (0.5%) ONE ×2 (07:06→08:31)
[2019-03-19] MEDS ORDERED: Buffered Lidocaine 1% SYRIN* 1 ML/SYRINGE INTRADERM ONE (07:44)
[2019-03-19] MEDS ORDERED: ceFAZolin 2 GM PREMIX in ORs 2 GM/50 ML BAG ONE (07:45)
[2019-03-19] MEDS ORDERED: Propofol* 10 MG/ML 20 ML BTL ONE (08:30)
[2019-03-19] MEDS ORDERED: Lidocaine 2% PF * 5 ML VIAL ONE (08:30)
[2019-03-19] MEDS ORDERED: Midazolam* 1 MG/ML 2 ML VIAL (2 MG) ONE (08:30)
[2019-03-19] MEDS ORDERED: Rocuronium* 10 MG/ML VIAL ONE ×3 (08:30→13:33)
[2019-03-19] MEDS ORDERED: Lidocaine 1% MPF ** 5 ML VIAL ONE (08:39)
[2019-03-19] MEDS ORDERED: fentaNYL* 50 MCG/ML 2 ML VIAL (100 MCG VIAL) ONE (09:06)
[2019-03-19] MEDS ORDERED: Dexamethasone IV* 4 MG/ML 1 ML (4 MG) ONE ×2 (09:24→13:17)
[2019-03-19] MEDS ORDERED: Ketorolac INJ* 30 MG/ML 1 ML VIAL ONE ×2 (09:24→13:17)
[2019-03-19] MEDS ORDERED: Ondansetron INJ* 2 MG/ML VIAL ONE ×2 (09:24→13:17)
[2019-03-19] MEDS ORDERED: Metoclopramide IV* 5 MG/ML 2 ML VIAL ONE ×2 (09:24→13:17)
[2019-03-19] MEDS ORDERED: oxyCODONE TAB* 5 MG TAB PO PRN ×2 (10:31→11:36)
[2019-03-19] MEDS ORDERED: HYDROmorphone INJ1* 1 MG/ML SYRINGE IV PRN (10:31)
[2019-03-19] MEDS ORDERED: DiMENhydriNATE IV* 50 MG/ML VIAL IV PUSH PRN (10:31)
[2019-03-19] MEDS ORDERED: Naloxone* 0.4 MG/ML 1 ML VIAL IV PRN (10:31)
[2019-03-19] MEDS ORDERED: Ondansetron ODT TAB* 4 MG PO PRN (11:36)
[2019-03-19] MEDS ORDERED: oxyCODONE/Acetamin 5/325 MG* TAB PO PRN (11:36)
[2019-03-19] MEDS ORDERED: Cyclobenzaprine TAB* 10 MG PO PRN (11:36)
[2019-03-19] MEDS ORDERED: Ondansetron INJ* 2 MG/ML VIAL IV PRN (11:36)
[2019-03-19] MEDS ORDERED: Morphine INJ* 2 MG/ML 1 ML SYRINGE (TWO MG - NEW SYRINGE VERSION) IV PRN (11:36)
[2019-03-19] MEDS ORDERED: Magnesium Hydroxide LIQ* 30 ML UDC PO PRN (11:36)
[2019-03-19] MEDS ORDERED: Acetaminophen TAB* 325 MG PO PRN (11:36)
[2019-03-19] MEDS ORDERED: diPHENhydraMINE IV* 50 MG/ML 1 ml VIAL (BENADRYL) IV PRN (11:36)
[2019-03-19] MEDS ORDERED: diPHENhydraMINE PO* 25 MG PO PRN (11:36)
[2019-03-19] MEDS: oxyCODONE/Acetamin 5/325 MG* TAB PO PRN ×2 (14:03→22:55)
[2019-03-19] MEDS: Lactated Ringers 1000 ML Bag* 1,000 ML IV SCH (14:07)
[2019-03-19] MEDS ORDERED: Acetaminophen IV 1GM/100ML * 0 ML ONE (14:33)
[2019-03-19] MEDS ORDERED: Sugammadex * 200 MG/2 ML VIAL IV PUSH ONE (14:35)
--- NOTE | 2019-03-19 16:02 | PN ---
Progress Note - Progress Note Date of Service: 03/19/19 SOAP: Subjective: [The pt is resting comfortably in a reclined chair. States that she is having no pain. She was able to get up out of bed and get into the chair. She denies any chest pain, SOB, nausea or vomiting. Complains of irritation in the right eye. Denies any photophobia. ] Objective: [General: Pt is alert and oriented x 3. NAD Right eye: EOMI, small amount of irritation present on the upper eyelid. ] Vital Signs Temp 98.1 F 03/19/19 14:30 Pulse 64 03/19/19 14:30 Resp 16 03/19/19 14:30 BP 122/65 03/19/19 14:30 Pulse Ox 92 03/19/19 14:30 Intake & Output 03/18/19 03/19/19 03/19/19 18:59 06:59 18:59 Intake Total 200 Balance 200 Weight 146 lb Intake: Oral 200 Assessment: [POD 0 LTHA] Plan: [Cool compresses to the eye. Concern for irritation from tape on the upper eyelid. Abx x24 hours Percocet for pain Eliquis 2.5 mg bid Possible DC home tomorrow ]
--- NOTE | 2019-03-19 17:14 | OP ---
Operative Report - Blank - Operative Report Date of Operation: 03/19/19 Note: GAURANG LEE 1945 Date Of Surgery: 03/19/19 Hoa Loo MD Character Impersonator: Christine RAJPUT did help throughout the procedure with preparation of the hip, wound retraction, manipulation of the hip, and wound closure. Anesthesiologist: Christine Adan MD Anesthesia Type: Spinal Preoperative Diagnosis: Left severe degenerative osteoarthritis of the hip Postoperative Diagnosis: As above Procedure Performed: Left Total Hip Arthroplasty Complications: None Specimen: Femoral head and acetabular reamings sent to pathology. Hardware used: This is uncemented Kamlesh total hip arthroplasty hardware for the femur a size 3 accolade II with 127 neck angle femoral component, for the acetabulum a size 48D trident II tritanium cluster hole shell, one 15 mm screw for the insert a size 36D trident X3 polyethylene insert, and for the femoral head a size 36 + 2.5 ceramic biolox delta V40 femoral head. Brief history/Indication: GAURANG LEE was known in clinic and had a history of severe left hip pain. She failed conservative treatment with anti- inflammatories, pain pills, intra-articular injections and physical therapy. She elected to undergo left total hip arthroplasty due to continued pain and decreased quality of life. Radiographs showed severe end stage osteoarthritis of the hip with bone on bone contact. Informed consent was obtained from the patient. She understood the risks of surgery included but were not limited to: bleeding, infection, damage to nearby structures, intraoperative fracture, nerve palsy, failure of the hardware, early loosening, stiffness or loss of motion, dislocation, leg length discrepancy, anesthesia complications, stroke, heart attack, blood clot and . She wished to proceed. Intra-Operative findings: Intraoperatively the patient was noted to have severe loss of cartilage of the acetabulum and femoral head. Description of the Procedure: GAURANG LEE was identified in the preanesthesia unit. Her left hip was marked as the correct operative side. Informed consent was signed and placed in the chart. The patient was taken to the operating room and placed under anesthesia without complication. A jenkins catheter was placed. The patient was placed on the peg board with all bony prominences well padded. The left lower extremity was prepped and draped in the usual sterile fashion. Preoperative time -out was made to correctly identify the patient, side and site. Appropriate intraoperative antibiotics were given within one hour of incision. A standard posterior incision was made and carried sharply down to the lateral fascia. A new 10 blade was used to make an incision in the fascia in line with the skin incision. A charnley retractor was placed. The piriformis and conjoined tendons were identified and elevated off the posterolateral femur using electrocautery. These were tagged with number 5 Ethibond. Next electrocautery was used to make a posterolateral capsular flap and this was tagged with number 5 Ethibonds. The hip was carefully dislocated. Lesser trochanter to the center of the femoral head was measured at 55 mm. The oscillating saw was used to make the femoral neck cut. The femoral head was carefully removed. The femur was retracted anteriorly and the acetabular retractors were placed. Long-handled knife was used to sharply remove any remaining labrum from the acetabular rim. The acetabulum was sequentially reamed up to a size 48. A bleeding subchondral bone bed was obtained. A trial liner was placed and had excellent fit and stability. A 48D cup with one screw was placed and had excellent stability with appropriate anteversion and abduction angle. A size 36D polyethylene liner was impacted into the acetabular shell. The liner was checked for stability and was stable. Next attention was turned to preparation of the femoral canal. A canal finder was used to enter the proximal femur. The femoral canal was sequentially broached up to a size 3 femoral broach trial. A trial neck and 36 + 0 trial femoral head was chosen. Lesser trochanter to center of the femoral head measurement was satisfactory. The hip was reduced and taken through a range of motion. The hip was stable in all positions with good soft tissue tension and appropriate leg lengths. The hip was dislocated and all trials were removed. The final implant chosen was a accolade size 3. This stem was impacted into the femoral canal without difficulty. The stem was stable with appropriate anteversion. The femoral head chosen was a 36 + 2.5 ceramic head. The head was impacted onto the femoral neck without difficulty. The final lesser trochanter to center of the femoral head measurement was satisfactory. The hip was reduced and taken through a range of motion. The hip was stable in all positions with good soft tissue tension and appropriate leg lengths. The hip was copiously irrigated with sterile saline. The previously tagged capsule and tendons were repaired to the posterolateral femur through two trochanteric drill holes. The lateral fascia layer was closed using number 1 vicryls. The rest of the incision was closed in a layered fashion using 0 and 2-0 vicryls. The skin was closed using 3-0 monocryl suture and Dermabond. Sterile adaptic, 4x4s and paper tape was used to cover the incision. The patients anesthesia was reversed without difficulty. She was taken to the PACU in stable condition. Intended weight-bearing will be as tolerated with posterior hip precautions.
[2019-03-19] MEDS: ceFAZolin 1 GM ADVAN(*) 1 GM in NS 0.9% 50 ML* 50 ML IVPB SCH (18:07)
[2019-03-19] MEDS: Docusate CAP* 100 MG PO SCH (20:15)
[2019-03-19] MEDS: Hydroxychloroquine TAB* 200 MG PO SCH (20:15)
[2019-03-19] MEDS: Magnesium Hydroxide LIQ* 30 ML UDC PO SCH (20:15)
[2019-03-20] MEDS: Lactated Ringers 1000 ML Bag* 1,000 ML IV SCH (00:09)
[2019-03-20] MEDS: ceFAZolin 1 GM ADVAN(*) 1 GM in NS 0.9% 50 ML* 50 ML IVPB SCH ×2 (01:26→08:31)
[2019-03-20] MEDS: Docusate CAP* 100 MG PO SCH (08:30)
[2019-03-20] MEDS: Hydroxychloroquine TAB* 200 MG PO SCH (08:31)
[2019-03-20] MEDS: Magnesium Hydroxide LIQ* 30 ML UDC PO SCH (08:31)
[2019-03-20 08:43] LABS: Hematocrit 32 % (35-47); Hemoglobin 10.6 g/dL (12.0-16.0); Mean Platelet Volume 7.8 fL (7.4-10.4); Platelet Count 239 10^3/uL (150-450)
[2019-03-20 09:00] LABS: BUN/Creatinine Ratio 17.9 (8-20); Calcium 8.4 mg/dL (8.6-10.3); EGFR African American 128.8 (>60); EGFR Non-African American 106.4 (>60)
[2019-03-20] MEDS ORDERED: Vitamin THERAPEUTIC TAB PO SCH (09:00)
[2019-03-20] MEDS ORDERED: Apixaban* 2.5 MG TAB PO SCH (09:00)
--- NOTE | 2019-03-20 10:18 | PN ---
Progress Note - Progress Note Date of Service: 03/20/19 SOAP: Subjective: []Pt seen and examined at bedside. SHe feels well without CP, SOB, dizziness, nausea. Desires DC home today. Objective: []Gen: NAD, appears well LLE: Left hip dressing CDI, thigh soft, DF/PF intact, DP2+, sensation intact to light touch distally Calves supple and nontender without erythema, edema or palpable cords Assessment: []POD 1 sp LTH Plan: []WBAT PT/OT Posterior hip precautions eliquis 2.5 mg po bid x 30 days post op DC today if pt goals met this afternoon Vital Signs Temp 98 F 03/20/19 07:54 Pulse 97 03/20/19 07:54 Resp 18 03/20/19 08:29 BP 134/49 03/20/19 07:54 Pulse Ox 97 03/20/19 07:54 Intake & Output 03/19/19 03/20/19 03/20/19 18:59 06:59 18:59 Intake Total 200 1900 Output Total 1400 Balance 200 500 Weight 146 lb Intake: IV Fluids 1000 LR 1000 Oral 200 900 Output: [place]ark[place] 1400 Laboratory Last Values Hgb 10.6 g/dL (12.0-16.0) L 03/20/19 08:13 Hct 32 % (35-47) L 03/20/19 08:13 Plt Count 239 10^3/uL (150-450) 03/20/19 08:13 MPV 7.8 fL (7.4-10.4) 03/20/19 08:13 Sodium 138 mmol/L (135-145) 03/20/19 08:13 Potassium 4.0 mmol/L (3.5-5.0) 03/20/19 08:13 Chloride 106 mmol/L (101-111) 03/20/19 08:13 Carbon Dioxide 27 mmol/L (22-32) 03/20/19 08:13 Anion Gap 5 mmol/L (2-11) 03/20/19 08:13 BUN 10 mg/dL (6-24) 03/20/19 08:13 Creatinine 0.56 mg/dL (0.51-0.95) 03/20/19 08:13 Est GFR ( Amer) 128.8 (>60) 03/20/19 08:13 Est GFR (Non-Af Amer) 106.4 (>60) 03/20/19 08:13 BUN/Creatinine Ratio 17.9 (8-20) 03/20/19 08:13 Glucose 130 mg/dL (70-100) H 03/20/19 08:13 Calcium 8.4 mg/dL (8.6-10.3) L 03/20/19 08:13 Blood Type O Positive 03/19/19 08:15 Antibody Screen Negative 03/19/19 08:15
[2019-03-20 11:34] VITALS: BP 134/64
[2019-03-20] MEDS: oxyCODONE/Acetamin 5/325 MG* TAB PO PRN (12:27)
--- NOTE | 2019-03-20 14:09 | DS ---
Orthopedic Discharge Summary - Discharge Summary Date of Admission:03/19/19 Date of Discharge: 03/20/19 Date of Surgery: 03/19/19 Attending Orthopedic Provider: Dr Loo Pre-operative Diagnosis: : left hip osteoarthritis Operative Procedure: left total hip arthroplasty Disposition of Patient: home with lifetime nursing and home pt Condition of Patient: stable History: GAURANG LEE is a 73 year old F with years of increasingly severe left hip pain. Patient has failed conservative management and has elected to undergo a left total hip replacement Hospital Course: GAURANG was admitted to [facility] on 03/19/19. Patient underwent a left total hip replacement without complication followed by a brief recovery in PACU and transfer to the Short Stay Surgical Unit in stable condition. physical therapy and occupational therapy also participated in this patients care. Post-op day 1: patient was alert and in no acute distress. Dressing was clean, dry and intact. Operative extremity dorsiflexion and plantarflexion intact, sensation intact to light touch distally, DP2+. Prior to discharge: dressing was changed, incision was clean, dry and intact. Patient was deemed to be medically and orthopedically stable for discharge. Physical therapy goals were met. Home Medications Medication Instructions Recorded Confirmed Type Ascorbic Acid TAB* [Vitamin C 500 mg PO BID 03/28/12 03/19/19 History TAB*] Calcium Carbonate/Vitamin D3 1 tab PO BID 12/07/16 03/19/19 History Calcium 600-Vit D3 800 Tablet Desloratidine (NF) [Clarinex (NF)] 5 mg PO BEDTIME 12/07/16 03/19/19 History Multivitamin [Multivitamins] 1 cap PO QAM 12/07/16 03/19/19 History Hydroxychloroquine TAB* [Plaquenil 200 mg PO BID 02/22/19 03/19/19 History TAB*] Leflunomide (NF) [Arava (Nf)] 20 mg PO QAM 02/22/19 03/19/19 History Magnesium Oxide [Magnesium] 500 mg PO QAM 02/22/19 03/19/19 History [place]-3 Fatty Acids/Fish Oil 1 cap PO QAM 02/22/19 03/19/19 History [[place] 3 1,000 mg Softgel] Vitamin B Complex TAB* [B 1 tab PO QAM 02/22/19 03/19/19 History Complex-50*] Vitamin D3 1000 Unit Bid 1,000 unit PO BID 02/22/19 03/19/19 History Acetaminophen TAB* [Tylenol TAB*] 650 mg PO Q8HR PRN tab 03/20/19 Rx Apixaban* [Eliquis*] 2.5 mg PO BID #60 tab 03/20/19 Rx Docusate CAP* [Colace Cap*] 100 mg PO BID PRN #60 cap 03/20/19 Rx oxyCODONE/Acetamin 5/325 MG* 1 tab PO Q4H PRN tab MDD 10 03/20/19 Rx [Percocet 5/325 TAB*] oxyCODONE/Acetamin 5/325 MG* 2 tab PO Q4H PRN #60 tab MDD 10 03/20/19 Rx [Percocet 5/325 TAB*] Discharge Instructions following Orthopedic Surgery: Activity: * Weight Bearing as tolerated * Continue physical therapy and occupational therapy exercises as shown * PT at home Hip replacements: Continue Hip Precautions- do not cross legs or bend greater than 90 degrees/squat Wound care: * OK to shower on post-op day 3, no bathing, swimming, or submerging wound. * Use gentle soap, pat dry. Cover with gauze, IAM wrap or tape. * Visiting home nurse to do wound checks. Call Orthopedic office for: * Increased drainage * Redness * Increased pain * Fever Go to ER with shortness of breath or chest pain. Diet: * Regular diet * Increase fluids and fiber to prevent constipation. * Continue to use stool softeners, call office if no bowel motion within 48 hours. Medications See Home Medication List in your packet for medications that you should take after discharge. DVT Prophylaxis: Eliquis Dosin.5 mg, 1 tab every 12 hours x 30 days. Increases bleeding tendency Pain Control: Percocet Dosin/325 mg 1-2 tabs by mouth every 4-6 hours as needed for pain. Maximum of 10 tabs per day. Hold for sedation, wean off as soon as pain allows Please note that Percocet contains Tylenol (acetaminophen). Maximum daily dose of Tylenol is 4000 mg from all sources. Antibiotics are required prior to any dental work. FOLLOW UP: Follow up with Dr. Shafer] Within 10-14 days, call for appointment Please call our office with any questions or concerns ([phone]) [facility]
== END 2019-03-20 15:10 | disposition home or self-care (01) ==
LOC: OR 06:27 → SSU 11:37 → INTOOBSV 11:37
PROVIDERS: ADMIT Orthopaedic Surgery Adult Reconstructive Orthopaedic Surgery; ATTEND Orthopaedic Surgery Adult Reconstructive Orthopaedic Surgery
DX: M16.12 Unilateral primary osteoarthritis, left hip (principal); Z79.899 Other long term (current) drug therapy; M05.79 Rheumatoid arthritis with rheumatoid factor of multiple sites without organ or systems involvement; Z85.3 Personal history of malignant neoplasm of breast
CPT/HCPCS: 36415; 72170; 80048; 85014; 85018; 85049; 86850; 86900; 86901; A9270-GY; G0378; J0690; J1100; J1885; J2250; J2405; J2704; J2765; J2795; J3010